=== PATIENT | male | born 1970 | race Caucasian/White ===

== ENCOUNTER 2022-08-06 13:06 | Emergency (ER) | payer SELFPAY ==
[2022-08-06 13:16] VITALS: BP 178/131; PULSE 105; RESP 17; TEMP 36.7; O2SAT 95; BMI 40.6
--- NOTE | 2022-08-06 13:21 | ECG_ITS ---
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 Measurements Intervals [place] Rate: 97 P: 16 CO: 169 QRS: -17 QRSD: 97 T: 40 QT: 340 QTc: 432 Interpretive Statements SINUS RHYTHM POSSIBLE LEFT ATRIAL ENLARGEMENT [-0.1mV P-WAVE IN V1/V2] No previous ECG available for comparison Electronically Signed On 08-06-2022 16:12:23 CITY WELLNESS COORDINATOR by Alicia Brito M.D. [id number]
--- NOTE | 2022-08-06 14:02 | ED_ITS ---
HPI - Chest Pain General: Chief Complaint: Chest Pain Stated Complaint: Chest pressure, SOB Time Seen by Provider: 08/06/22 14:02 History of Present Illness: Mr. Negron is a 52-year-old gentleman with history of obesity presenting to the emergency department due to chest discomfort. He reports intermittent history in the past however became more intense starting last night. He endorses left anterior spasming tightness with bilateral upper extremity tingling. He notes nausea last night as well as dyspnea on exertion. Intensity symptoms is moderate. Course has persisted whi ch is atypical compared to prior episodes, no other specific changes in health, exacerbating, or alleviating factors identified. Onset (ago): hour(s) Timing of current episode: episodic Prior episodes: Yes Onset: during rest Pain location: left chest Severity: moderate Quality: other Relieving factors: nothing Exacerbating factors: nothing Associated symptoms: Reports dyspnea and nausea Review of Systems General: Reports: 10 or more systems reviewed and unremarkable except in HPI and below Resp: Reports: dyspnea GI: Reports: nausea Physical Exam Const: COMMON NORMALS: alert GENERAL APPEARANCE: cooperative and well developed HENMT: COMMON NORMALS: normocephalic and atraumatic HEAD & SCALP: normocephalic and atraumatic THROAT: posterior oropharynx normal Eye: COMMON NORMALS: conjunctivae normal CONJUNCTIVA: Yes conjunctivae normal SCLERA: sclerae normal Neck/C-Spine: COMMON NORMALS: supple GENERAL: Yes trachea midline Resp: COMMON NORMALS: normal respiratory effort EFFORT & INSPECTION: Yes able to speak in complete sentences Cardio: COMMON NORMALS: regular rate and regular rhythm RATE: regular rate RHYTHM: regular rhythm GI: COMMON NORMALS: Soft to palpation PALPATION: Yes Soft to palpation and No Tenderness to palpation present (GI) PERCUSSION: normal to percussion Extremity: GENERAL: Yes normal exam except as noted and No edema Neuro: COMMON NORMALS: moves all extremities SENSORIUM/ORIENTATION: Yes alert and No Orientation impaired Psych: COMMON NORMALS: mental status grossly normal and Normal thought process present THOUGHT PROCESS: Normal thought process present Course Vital Signs: Vital signs: Vital Signs Temperature 98.1 F 08/06/22 13:16 Pulse Rate 89 08/06/22 19:10 Respiratory Rate 15 08/06/22 19:10 Blood Pressure 183/113 08/06/22 19:10 Pulse Oximetry 97 08/06/22 19:10 Oxygen Delivery Me thod 08/06/22 17:38 MDM - Chest Pain Medical Decision Making 52-year-old gentleman presenting to the emergency department for chest pain. Patient is nontoxic on exam. EKG notable for sinus rhythm with left axis deviation, nonspecific ST-T segment abnormalities, no STEMI. Labs with no significant hematologic or metabolic abnormality to explain s ymptoms. 2-hour delta troponin is in the negative range. Chest x-ray with no lobar consolidation or pneumothorax. Patient is low risk by heart score. The results of ED evaluation were discussed with the patient including prescriptions and/or symptomatic cares (if applicable) including appropriate and responsible use, followup plan, and return precautions. The patient verbalized understanding and felt safe for discharge. Medical Records I reviewed the patient's medical records. Lab Data I reviewed the patient's lab results. 08/06/22 14:50 08/06/22 14:50 Radiology Impressions Chest X-Ray 08/06/22 14:16 IMPRESSION: Mild left ventricular prominence, and without acute findings. Laboratory Results WBC 9.1 10^3/uL (4.0-10.0) 08/06/22 14:50 RBC 4.89 10^6/uL (4.1-5.3) 08/06/22 14:50 Hgb 14.9 g/dL (11.7-16.6) 08/06/22 14:50 Hct 45.0 % (42.0-52.0) 08/06/22 14:50 MCV 92.0 fl (80-94) 08/06/22 14:50 MCH 30.5 pg (28.0-34.0) 08/06/22 14:50 MCHC 33.1 g/dL (30.0-36.0) 08/06/22 14:50 RDW 12.5 % (12.1-15.1) 08/06/22 14:50 Plt Count 313 10^3/cmm (130-400) 08/06/22 14:50 MPV 10.6 fL (7.4-10.4) H 08/06/22 14:50 Neut % (Auto) 75.2 % 08/06/22 14:50 Lymph % (Auto) 17.1 % 08/06/22 14:50 [place] % (Auto) 5.0 % 08/06/22 14:50 Eos % (Auto) 2.2 % 08/06/22 14:50 Baso % (Auto) 0.2 % 08/06/22 14:50 Neut # (Auto) 6.84 10^3/uL (1.8-7.7) 08/06/22 14:50 Lymph # (Auto) 1.6 10^3/uL (0.8-4.8) 08/06/22 14:50 [place] # (Auto) 0.5 10^3/uL (0.2-0.9) 08/06/22 14:50 Eos # (Auto) 0.2 10^3/uL (0.0-0.8) 08/06/22 14:50 Baso # (Auto) 0.0 10^3/uL (0.0-0.1) 08/06/22 14:50 Nucleated RBC % (auto) 0 % 08/06/22 14:50 Nucleated RBCs # 0.0 /100WBC 08/06/22 14:50 Sodium 135 mmol/L (136-145) L 08/06/22 14:50 Potassium 3.8 mmol/L (3.5-5.1) 08/06/22 14:50 Chloride 98 mmol/L (98-107) 08/06/22 14:50 Carbon Dioxide 25 mmol/L (22-29) 08/06/22 14:50 Anion Gap 15.8 (5-19) 08/06/22 14:50 BUN 11 mg/dL (6-20) 08/06/22 14:50 Creatinine 0.9 mg/dL (0.7-1.2) 08/06/22 14:50 GFR Calculation 89.0 mL/min (90-130) L 08/06/22 14:50 Glucose 94 mg/dL (65-115) 08/06/22 14:50 Calculated Osmolality 279 mOsm/kg (285-295) L 08/06/22 14:50 Calcium 9.3 mg/dL (8.5-10.5) 08/06/22 14:50 Total Bilirubin 0.4 mg/dL (0.15-1.2) 08/06/22 14:50 AST 17 U/L (0-40) 08/06/22 14:50 ALT 21 U/L (0-41) 08/06/22 14:50 Alkaline Phosphatase 75 U/L (40-130) 08/06/22 14:50 Troponin T Baseline 6 ng/L (0-15) 08/06/22 14:50 Troponin T 120 Minute 6.71 ng/L (0-15) 08/06/22 17:14 Delta Troponin T 0.71 ABS# (0-10) 08/06/22 17:14 NT-Pro-B Natriuret Pep 36 pg/mL (0-125) 08/06/22 14:50 Total Protein 7.6 g/dL (6.6-8.7) 08/06/22 14:50 Albumin 4.3 g/dL (3.5-5.2) 08/06/22 14:50 Globulin 3.3 g/dL (1.3-4.6) 08/06/22 14:50 Lipase 12 U/L (13-60) L 08/06/22 14:50 Discharge Plan Discharge Patient Disposition: Home Clinical Impression: Chest pain Condition: Stable Prescriptions: No Action No Known Home Medications Discharge Orders: Discharge ED (Routine); Ordered 08/06/22 Ordered By: Luca Colindres Discharge Diet: Usual diet Discharge Activity: Resume usual activity Patient Instructions: Chest Pain (ED) Activity Restrictions/Additional Instructions: Thank you for visiting the emergency department. You were seen and evaluated for chest pain. The exact cause of your symptoms is unclear however based on risk stratification does not require inpatient management at this time. I will message case management for establishing with a primary care provider and further outpatient cardiac work-up. Return to the emergency department for uncontrolled symptoms or anything else that you are concerned about and feel needs emergency department evaluation. Coding Level of Care Code ED Research Environmental Engineer for Zeny Mckeon
--- NOTE | 2022-08-06 14:16 | XRR_ITS ---
PROCEDURE INFORMATION: Exam: XR Chest Exam date and time: 08/06/2022 2:32 PM Age: 52 years old Clinical indication: Pain; Angina pectoris; Additional info: Cp TECHNIQUE: Imaging protocol: Radiologic exam of the chest. Views: 1 view. COMPARISON: No relevant prior studies available. FINDINGS: Lungs: Unremarkable. No consolidation. Pleural spaces: Unremarkable. No pleural effusion. No pneumothorax. Heart/Mediastinum: Mild left ventricular prominence. Bones/joints: No acute findings. XR/XR chest 1V portable [id number] IMPRESSION: Mild left ventricular prominence, and without acute findings.
[2022-08-06 14:53] VITALS: BP 161/131; PULSE 93; RESP 18; O2SAT 95
[2022-08-06 15:06] LABS: Basophils % 0.2 %; Eosinophils # 0.2 10^3/uL (0.0-0.8); Eosinophils % 2.2 %; Hemoglobin 14.9 g/dL (11.7-16.6); Lymphocytes # 1.6 10^3/uL (0.8-4.8); Lymphocytes % 17.1 %; Mean Corpuscular HGB Conc 33.1 g/dL (30.0-36.0); Mean Corpuscular Hemoglobin 30.5 pg (28.0-34.0); Mean Platelet Volume 10.6 fL (7.4-10.4); Monocytes # 0.5 10^3/uL (0.2-0.9); Neutrophils # 6.84 10^3/uL (1.8-7.7); Neutrophils % 75.2 %; Nucleated Red Blood Cells % 0 %; Platelet Count 313 10^3/cmm (130-400); Red Blood Count 4.89 10^6/uL (4.1-5.3); Red Cell Distribution Width 12.5 % (12.1-15.1); White Blood Count 9.1 10^3/uL (4.0-10.0)
[2022-08-06 15:28] LABS: Troponin(5th) Baseline 6 ng/L (0-15)
[2022-08-06 15:37] LABS: Alanine Aminotransferase 21 U/L (0-41); Albumin Level 4.3 g/dL (3.5-5.2); Alkaline Phosphatase 75 U/L (40-130); Anion Gap 15.8 (5-19); Aspartate Amino Transferase 17 U/L (0-40); Blood Urea Nitrogen 11 mg/dL (6-20); Calcium 9.3 mg/dL (8.5-10.5); Carbon Dioxide 25 mmol/L (22-29); Chloride 98 mmol/L (98-107); Globulin 3.3 g/dL (1.3-4.6); Glucose 94 mg/dL (65-115); Lipase 12 U/L (13-60); NT Pro B Type Natriuretic Pept 36 pg/mL (0-125); Osmolality Calculated 279 mOsm/kg (285-295); Potassium 3.8 mmol/L (3.5-5.1); Sodium 135 mmol/L (136-145); Total Bilirubin 0.4 mg/dL (0.15-1.2); Total Protein 7.6 g/dL (6.6-8.7)
--- NOTE | 2022-08-06 17:03 | ECG_ITS ---
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 Measurements Intervals [place] Rate: 85 P: 6 AL: 160 QRS: -15 QRSD: 92 T: 28 QT: 362 QTc: 431 Interpretive Statements SINUS RHYTHM Compared to ECG 08/06/2022 13:24:16 No significant changes Electronically Signed On 08-07-2022 18:14:20 CLIENT SUPPORT MANAGER by Lenin Galvan M.D. [id number]
[2022-08-06 17:38] VITALS: BP 183/113; PULSE 89; RESP 15; O2SAT 97
[2022-08-06 18:23] LABS: Troponin 5 2HR 6.71 ng/L (0-15)
[2022-08-06 18:29] LABS: Troponin 5 2HR Delta 0.71 ABS# (0-10)
[2022-08-06 19:06] VITALS: BP 166/118; PULSE 87; RESP 20; O2SAT 94
[2022-08-06 19:10] VITALS: BP 183/113; PULSE 89; RESP 15; O2SAT 97
--- NOTE | 2022-08-07 15:37 | DCPLANNER ---
Addendum entered by Marleny Davalos 08/13/22 14:47: TCM called patient due to no primary care physician - no answer at this time Addendum entered by Marleny Davalos 08/13/22 14:47: 08.08.22 - TCM called patient due to no primary care physician - no answer at this time Original Note: grant manager had message to schedule an outpatient stress test for patient. grant manager called patient at phone number [phone] to confirm that patient wanted to have the stress test ordered and to confirm who patient sees for primary care. grant manager unable to speak with patient at this time, a voicemail was left for patient to return case management assistant phone call.
== END 2022-08-06 19:11 | disposition home or self-care (01) ==
PROVIDERS: Emergency Provider Emergency Medicine
DX: R07.9 Chest pain, unspecified (principal)
CPT/HCPCS: 71045; 80053; 83690; 83880; 84484; 85025; 93005; 99285